=== PATIENT | female | born 1980 | race Caucasian/White ===

== ENCOUNTER 2023-09-11 20:17 | Emergency (ER) | payer BC, OTHER ==
--- NOTE | 2023-09-11 20:20 | ERPHSYRPT ---
- History of Present Illness Time Seen by Provider: 09/11/23 20:20 Source: patient Exam Limitations: no limitations Physician History: This is a 43-year-old white female patient who was brought into the emergency department by private vehicle with complaint of back pain that began 3 days ago. She is also had associated frequency of urine and urgency. She did not fall or suffer any acute trauma to her back. The pain is in her left flank region. She has not had a fever. She has not had any nausea vomiting or diarrhea symptoms. Patient has no urinary incontinence. Patient has no constipation. Patient does not have any numbness in her feet. Timing/Duration: day(s) (3) Method of Injury: other (No injury) Quality: throbbing (Left flank region) Severity of Pain-Max: mild (To moderate) Severity of Pain-Current: mild (To moderate) Associated Symptoms: other (Pain left flank region), No urinary incontinence, No loss of bowel control, No vomiting, No numbness in legs/feet, No tingling in legs/feet Previous symptoms: no prior history, no recent treatment Allergies/Adverse Reactions: codeine Adverse Reaction (Intermediate, Verified 09/11/23 20:33) Headache Penicillins Adverse Reaction (Intermediate, Verified 09/11/23 20:33) Hives Home Medications: Escitalopram Oxalate [Lexapro] 20 mg PO DAILY 09/11/23 [History] Travel Risk - International Travel Have you traveled outside of the country in past 3 weeks: No - Emerging Infectious Disease Are you exhibiting symptoms associated with any current EIDs: No - Review of Systems Constitutional: No Symptoms Eyes: No Symptoms Ears, Nose, & Throat: No Symptoms Respiratory: No Symptoms Cardiac: No Symptoms Abdominal/Gastrointestinal: No Symptoms Genitourinary Symptoms: Frequency, Urgency, Flank Pain (Left) Musculoskeletal: No Symptoms Skin: No Symptoms Neurological: No Symptoms Psychological: No Symptoms Endocrine: No Symptoms Hematologic/Lymphatic: No Symptoms Immunological/Allergic: No Symptoms All Other Systems: Reviewed and Negative - Past Medical History Pertinent Past Medical History: Yes - Nursing Vital Signs Nursing Vital Signs: Initial Vital Signs Temperature 97.7 F 09/11/23 20:25 Pulse Rate 79 09/11/23 20:25 Respiratory Rate 18 09/11/23 20:25 Blood Pressure 167/77 09/11/23 20:25 O2 Sat by Pulse Oximetry 100 09/11/23 20:25 Pain Scale Pain Intensity [Left Lower 7 Back] Pain Intensity 7 - Physical Exam General Appearance: no apparent distress, alert Eye Exam: PERRL/EOMI, eyes nml inspection Ears, Nose, Throat Exam: normal ENT inspection, moist mucous membranes Neck Exam: normal inspection, non-tender, supple, full range of motion Respiratory Exam: airway intact, No chest tenderness, No respiratory distress Cardiovascular Exam: regular rate/rhythm, normal heart sounds, normal peripheral pulses Gastrointestinal Exam: soft, normal bowel sounds, No tenderness Pelvic Exam: not done Rectal Exam: not done Back Exam: normal inspection, normal range of motion, CVA tenderness (Left side), No vertebral tenderness Extremity Exam: normal inspection, normal range of motion, pelvis stable Neurologic Exam: alert, oriented x 3, cooperative, principal technical specialist II-XII nml as tested, nml cerebellar function, nml station & gait, sensation nml Skin Exam: normal color, warm, dry Lymphatic Exam: No adenopathy SpO2 Interpretation: normal O2 Delivery: Room Air - Course Nursing assessment & vital signs reviewed: Yes Ordered Tests: Active Orders 24 hr Category Date Time Status ABDOMEN AND PELVIS W/0 CONTRAS [CT] Stat Exams 09/11/23 21:19 Taken CULTURE,URINE Stat Lab 09/11/23 20:37 Received UA W/RFX UR CULTURE Stat Lab 09/11/23 20:37 Completed Medication Summary Discontinued Medications Generic Name Dose Route Start Last Admin Trade Name Freq PRN Reason Stop Dose Admin Hydromorphone HCl 1 mg 09/11/23 21:19 09/11/23 21:33 Hydromorphone 1 Mg/1ml Inj IM 09/11/23 21:20 1 mg STAT ONE Administration Hydromorphone HCl Confirm 09/11/23 21:24 Hydromorphone 1 Mg/1ml Inj Administered 09/11/23 21:25 Dose 1 mg .ROUTE .STK-MED ONE Ketorolac Tromethamine 60 mg 09/11/23 21:19 09/11/23 21:33 Ketorolac Tromethamine 30 Mg/Ml Inj IM 09/11/23 21:20 60 mg STAT ONE Administration Ketorolac Tromethamine Confirm 09/11/23 21:23 Ketorolac Tromethamine 30 Mg/Ml Inj Administered 09/11/23 21:24 Dose 60 mg .ROUTE .STK-MED ONE Ondansetron HCl 4 mg 09/11/23 21:20 09/11/23 21:26 Zofran 4 Mg/Udtablet Orally Disintegrating PO 09/11/23 21:21 4 mg STAT ONE Administration Ondansetron HCl Confirm 09/11/23 21:24 Zofran 4 Mg/Udtablet Orally Disintegrating Administered 09/11/23 21:25 Dose 4 mg .ROUTE .STK-MED ONE Lab/Rad Data: Laboratory Results 09/11/23 Range/Units 20:37 Urine Color Yellow (Yellow) Urine Appearance Cloudy A (Clear) Urine pH 6.0 (4.6-8.0) Ur Specific [place] 1.020 (1.005-1.030) Urine Protein Trace A (Negative) Urine Glucose (UA) Negative (Negative) mg/dL Urine Ketones Trace A (Negative) Urine Blood Moderate A (Negative) Urine Nitrite Negative (Negative) Urine Bilirubin Negative (Negative) Urine Urobilinogen 1.0 A (0.2) mg/dL Ur Leukocyte Esterase Trace A (Negative) U Hyaline Cast (Auto) NONE SEEN (0-2) /LPF Urine Microscopic RBC 6-10 A (0-5) /HPF Urine Microscopic WBC 6-10 A (0-5) /HPF Ur Epithelial Cells Many A (None Seen) /HPF Urine Bacteria Many A (None Seen) /HPF Urine Mucus Moderate A (NEGATIVE) /HPF Urine Culture Reflexed YES (NO) - Progress Progress: improved, pain not gone completely, re-examined Progress Note: 09/11/23 20:39 My medical decision making and the assignment of moderate complexity to this patient's medical issues based on review of the patient's past medical history, review of the patient's medication list, review the patient drug allergy list, history present illness and physical findings on examination. The workup in this patient includes urinalysis. Patient states that there is no chance that she is . Differential diagnosis includes but is not limited to left lower back musculoskeletal pain, urinary tract infection, pyelonephritis, 09/11/23 21:21 I have interpreted the patient's laboratory data results. Patient has hematuria as well as a significant urinary tract infection. I have added a CT scan of the abdomen pelvis to evaluate for pyelonephritis versus ureteral lithiasis. I also have provided patient with intramuscular Toradol, Rocephin and Dilaudid. In addition, I provided the patient with Zofran 4 mg ODT. The patient states she has had Keflex in the past without any adverse effects. Patient has also had Dilaudid in the past without any significant adverse effects. 09/11/23 22:[address] scan of the abdomen pelvis without contrast was interpreted by the radiologist and I reviewed the impression. The impression states there are no comparison films available. There is mild fatty liver present. There is uterine IUD in situ. The remaining AP exam is within normal limits. Counseled pt/family regarding: lab results, diagnosis, need for follow-up Medical Desision Making - Independent Historian Additional History obtained from: Family - Diagnostic Testing Diagnostic test were ordered, analyzed, and reviewed by me: Yes - Risk of complications The pt has a mod risk of morbidity or mortality based on: Need for prescription drug management - Departure Departure Disposition: Home Clinical Impression: UTI (urinary tract infection) Condition: Stable Critical Care Time: No Referrals: SERGE SILVER FNP [Primary Care Provider] - Follow up/PCP as directed Additional Instructions: Drink plenty of fluids. Take your antibiotics as prescribed. May add Tylenol to help control your pain. Call your primary care provider tomorrow, 09/12/2023, to make arrangements for follow-up appointment for further evaluation management. Prescriptions: Ciprofloxacin [Cipro 500 MG] 500 mg PO BID #14 tablet Ketorolac Trometh 10 mg Tab [TORAdol 10 MG TABLET] 10 mg PO QID #10 tablet
[2023-09-11 20:25] VITALS: TEMP 97.7
[2023-09-11 21:00] LABS: ADD URINE CULTURE? YES (NO); Appearance Cloudy (Clear); Bacteria Many /HPF (None Seen); Bilirubin Negative (Negative); Blood Moderate (Negative); Epithelial Cells Many /HPF (None Seen); Glucose, Urine Negative (Negative); Hyaline Casts NONE SEEN /LPF (0-2); Ketones Trace (Negative); Leukocyte Esterase Trace (Negative); Mucus Moderate /HPF (NEGATIVE); Nitrite Negative (Negative); Protein,Urine Dip Trace (Negative)
[2023-09-11] MEDS ORDERED: TORAdol 30 mg Injection ONE (21:23)
[2023-09-11] MEDS ORDERED: ZOFRAN ODT 4 MG ONE (21:24)
[2023-09-11] MEDS ORDERED: Hydromorphone 1 mg/ml Injection ONE (21:24)
[2023-09-11] MEDS: ZOFRAN ODT 4 MG PO ONE (21:26)
[2023-09-11] MEDS: Hydromorphone 1 mg/ml Injection IM ONE (21:33)
[2023-09-11] MEDS: TORAdol 30 mg Injection IM ONE (21:33)
[2023-09-11 22:20] VITALS: BP 142/92; PULSE 76; RESP 16; O2SAT 95
--- NOTE | 2023-09-12 08:41 | XRAY ---
Indication: Left flank pain. Decreased urination. Multiple contiguous axial images obtained through the abdomen and pelvis without contrast. Comparison: None Lung bases clear. Heart not enlarged with incidental small left infrahilar calcified granulomas. Stomach is distended with food. Noncontrasted stomach and bowel loops appear nonobstructed. Normal appendix. Mild diffuse fatty liver. Tiny splenic and hepatic calcified granulomas. Uterus demonstrates IUD in situ. No free fluid/air. Remaining liver, gallbladder, pancreas, spleen, adrenal glands, kidneys, ureters, and bladder are unremarkable for noncontrast exam. Minimal aortic calcifications without AAA. Osseous structures intact. Impression: 1. Fatty liver, arteriosclerotic disease, IUD in situ, and old granulomatous disease. 2. Remaining CT abdomen/pelvis without contrast exam is negative.
== END 2023-09-11 22:25 | disposition home or self-care (01) ==
LOC: ED 20:17
DX: N39.0 Urinary tract infection, site not specified (principal); M54.50 Low back pain, unspecified; R35.0 Frequency of micturition; Z79.899 Other long term (current) drug therapy
CPT/HCPCS: 74176; 81001; 87086; 96372; 99284; J1170; J1885; Q0162